=== PATIENT | female | born 1930 | race Caucasian/White ===

== ENCOUNTER 2016-12-22 16:02 | Emergency (ER) | payer MEDICARE, BC ==
[~2016-12-22 16:02] MED LIST: ADULT LOW DOSE81 MG PO; ASPIRIN 325MG325 MG PO; ATIVAN0.5 MG PO; GLUCOPHAGE500 MG PO; ISOSORBIDE MONO30 MG PO; LIDODERM PATCH 51 EA TOP; LISINOPRIL5 MG PO; LORAZEPAM1 MG PO; MECLIZINE HCL25 MG PO; METOPROLOL SUC100 MG PO; METOPROLOL SUCC50 MG PO; NORCO 7.5-3251 EACH PO; SIMVASTATIN40 MG PO
[2016-12-22 19:04] LABS: HEMOGLOBIN 14.1 gm/dl (12.3-15.3); RED BLOOD COUNT 5.11 M/UL (4.00-5.10); WHITE BLOOD COUNT 8.8 K/UL (4.5-11.0)
[2016-12-22 19:16] LABS: BUN/CREATININE RATIO 28 (0-10)
== END 2016-12-23 01:40 | disposition home or self-care (01) ==
LOC: ER1 16:02
PROVIDERS: Student in an Organized Health Care Education/Training Program
DX: R07.9 Chest pain, unspecified (principal); E11.9 Type 2 diabetes mellitus without complications; E78.5 Hyperlipidemia, unspecified; C18.9 Malignant neoplasm of colon, unspecified; C95.90 Leukemia, unspecified not having achieved remission; Z90.710 Acquired absence of both cervix and uterus; Z90.49 Acquired absence of other specified parts of digestive tract; Z88.0 Allergy status to penicillin; Z88.2 Allergy status to sulfonamides; Z88.5 Allergy status to narcotic agent; Z88.1 Allergy status to other antibiotic agents; Z91.041 Radiographic dye allergy status; Z88.8 Allergy status to other drugs, medicaments and biological substances; Z79.82 Long term (current) use of aspirin; Z79.84 Long term (current) use of oral hypoglycemic drugs; Z79.899 Other long term (current) drug therapy
CPT/HCPCS: 36415; 70450; 71250; 72125; 73552; 80053; 81001; 82550; 82553; 83874; 84484; 85025; 85610; 85730; 87086; 93005; 96374; 96375; 99285; J2270; J2405; Q9962

== ENCOUNTER 2017-06-01 14:02 | Emergency (ER) | payer MEDICARE, BC ==
[2017-06-01 16:43] LABS: HEMOGLOBIN 13.6 gm/dl (12.3-15.3); RED BLOOD COUNT 3.68 M/UL (4.00-5.10); WHITE BLOOD COUNT 5.8 K/UL (4.5-11.0)
[2017-06-01 16:52] LABS: BUN/CREATININE RATIO 28 (0-10)
== END 2017-06-01 21:04 | disposition home or self-care (01) ==
LOC: ER1 14:02
PROVIDERS: Emergency Medicine
DX: S20.219A Contusion of unspecified front wall of thorax, initial encounter (principal); S70.02XA Contusion of left hip, initial encounter; E11.9 Type 2 diabetes mellitus without complications; I10 Essential (primary) hypertension; W18.40XA Slipping, tripping and stumbling without falling, unspecified, initial encounter; Y92.59 Other trade areas as the place of occurrence of the external cause
CPT/HCPCS: 36415; 71101; 73502; 80053; 81001; 82550; 82553; 83874; 84484; 85025; 93005; 99284